=== PATIENT | male | born 1995 | race Two or more races ===

== ENCOUNTER 2022-08-02 06:53 | Emergency (ER) | payer OTHER ==
[~2022-08-02] VITALS: Ht 177.8 cm; Wt 88.3 kg
[2022-08-02 07:34] VITALS: BP 127/79
[2022-08-02] MEDS ORDERED: AMOX500T86 PO (08:27)
[2022-08-02] MEDS ORDERED: NAPR500T31 PO (08:27)
[2022-08-02] MEDS ORDERED: TETANUS-DIPTH-ACEL PERTUSSIS 0.5ML SYR Tdap IM ONE (08:30)
== END 2022-08-02 08:41 | disposition home or self-care (01) ==
LOC: ER 06:53
DX: S51.832A Puncture wound without foreign body of left forearm, initial encounter (principal); S51.831A Puncture wound without foreign body of right forearm, initial encounter; W54.0XXA Bitten by dog, initial encounter; Y93.89 Activity, other specified; Y92.89 Other specified places as the place of occurrence of the external cause; Y99.8 Other external cause status
CPT/HCPCS: 90471; 90715